=== PATIENT | male | born 2000 | race Caucasian/White ===

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

== ENCOUNTER 2023-06-17 02:23 | Emergency (ER) | payer SELFPAY ==
[2023-06-17] MEDS ORDERED: Ibuprofen 600 MG Tab PO ONE (03:53)
[2023-06-17] MEDS ORDERED: Acetaminophen 325 MG Tab PO ONE (03:53)
== END 2023-06-17 04:25 | disposition home or self-care (01) ==
LOC: MW.ED 02:23
DX: S52.501A Unspecified fracture of the lower end of right radius, initial encounter for closed fracture (principal); S52.502A Unspecified fracture of the lower end of left radius, initial encounter for closed fracture; S52.611A Displaced fracture of right ulna styloid process, initial encounter for closed fracture; S52.612A Displaced fracture of left ulna styloid process, initial encounter for closed fracture; W19.XXXA Unspecified fall, initial encounter
CPT/HCPCS: 29125; 73110; 99283; A9270

== ENCOUNTER 2023-06-19 06:41 | Day surgery (SDC) | payer OTHER ==
[~2023-06-19 06:41] MED LIST: Lactated Ringers 1,000 ML IV SCH
[2023-06-19] MEDS ORDERED: Ropivacaine 0.5% 5 MG/ML 30 ML SDV ONE (07:24)
[2023-06-19] MEDS ORDERED: Famotidine 20 MG/2 ML SDV ONE (07:24)
[2023-06-19] MEDS ORDERED: Lidocaine 2% 5 ML SDV ONE ×2 (07:24→08:45)
[2023-06-19] MEDS ORDERED: Bupivacaine 0.25% 30 ML SDV ONE (07:26)
[2023-06-19] MEDS ORDERED: dexmedeTOMIDine HCl 200 MCG/2 ML SDV ONE (07:27)
[2023-06-19] MEDS ORDERED: propofoL 50 ML ONE (07:45)
[2023-06-19] MEDS ORDERED: Morphine 2 MG/ML SYRINGE IVPUSH PRN (07:46)
[2023-06-19] MEDS ORDERED: fentaNYL 250 MCG/5 ML SDV ONE (07:46)
[2023-06-19] MEDS ORDERED: fentaNYL 50 MCG/ML SDV IVPUSH PRN (07:46)
[2023-06-19] MEDS ORDERED: Metoclopramide 10 MG/2 ML SDV IVPUSH PRN (07:46)
[2023-06-19] MEDS ORDERED: Propofol 200 MG/20 ML SDV ONE ×2 (07:46→08:57)
[2023-06-19] MEDS ORDERED: droPERidol 5 MG/2 ML SDV IVPUSH PRN (07:46)
[2023-06-19] MEDS ORDERED: Ondansetron 4 MG/2 ML SDV IVPUSH PRN (07:46)
[2023-06-19] MEDS ORDERED: Albuterol 0.083% 2.5 MG/3 ML Neb Soln NEB PRN (07:46)
[2023-06-19] MEDS ORDERED: Naloxone 0.4 MG/ML SDV IVPUSH PRN (07:46)
[2023-06-19] MEDS ORDERED: HYDROmorphone 1 MG/ML Syringe IVPUSH PRN (07:46)
[2023-06-19] MEDS ORDERED: ceFAZolin 1 GM in Sodium Chloride 0.9% 50 ML IV ONE (08:00)
[2023-06-19] MEDS ORDERED: Dexamethasone 4 MG/ML 5 ML MDV ONE (08:45)
[2023-06-19] MEDS ORDERED: ceFAZolin 2 GM Vial ONE (08:45)
[2023-06-19] MEDS ORDERED: Ondansetron 4 MG/2 ML SDV ONE (08:45)
[2023-06-19] MEDS ORDERED: Ketorolac 30 MG/ML SDV ONE (08:45)
[2023-06-19] MEDS ORDERED: Water For Injection, Sterile 40 ML ONE (11:27)
== END 2023-06-19 10:50 | disposition home or self-care (01) ==
LOC: MW.SDS 06:41
PROVIDERS: ATTEND Orthopaedic Surgery
DX: S52.551A Other extraarticular fracture of lower end of right radius, initial encounter for closed fracture (principal); F17.290 Nicotine dependence, other tobacco product, uncomplicated; W22.8XXA Striking against or struck by other objects, initial encounter
CPT/HCPCS: 25607; 64415; 76000; J0131; J0690; J1100; J1885; J2405; J2704; J2795; J3010; J3490; J7120; C1713; J0665